=== PATIENT | male | born 1970 | race Caucasian/White ===

== ENCOUNTER 2019-01-12 10:38 | Emergency (ER) | payer SELFPAY ==
[~2019-01-12] VITALS: Ht 175.3 cm; Wt 80.0 kg
[~2019-01-12 10:38] MED LIST: AVELOX400 MG PO; BACTRIM DS1 TAB PO; FLEXERIL PO; LORTAB 10-325 M1 TAB PO; LORTAB 5 OR; LORTAB 7.5 OR; NAPROSYN250 MG PO; NAPROSYN500 MG OR; NO MEDS; PENICILLN VK500 MG OR
[2019-01-12] MEDS ORDERED: APAP/HYDRO325 MG/10 PO (12:28)
[2019-01-12] MEDS ORDERED: AMOXICILLIN875 MG PO (12:57)
[2019-01-12 13:00] VITALS: BP 151/106
== END 2019-01-12 13:00 | disposition home or self-care (01) | DRG 153 ==
LOC: ED 10:38
DX: H66.92 Otitis media, unspecified, left ear (principal); H92.03 Otalgia, bilateral; F17.200 Nicotine dependence, unspecified, uncomplicated; I10 Essential (primary) hypertension

== ENCOUNTER 2023-05-30 15:42 | Emergency (ER) | payer SELFPAY ==
[~2023-05-30] VITALS: Ht 175.3 cm; Wt 104.0 kg
[~2023-05-30 15:42] MED LIST changes: +AMOXICILLIN875 MG PO; +APAP/HYDRO325 MG/10 PO
[2023-05-30 18:39] VITALS: BP 161/114
== END 2023-05-30 19:00 | disposition left against medical advice (07) | DRG 951 ==
LOC: ED 15:42
DX: Z53.21 Procedure and treatment not carried out due to patient leaving prior to being seen by health care provider (principal)